=== PATIENT | male | born 1980 | race Caucasian/White ===

== ENCOUNTER → 2019-06-27 | Outpatient (CLI) | payer BC ==
[2019-06-27 12:25] LABS: Basophils % (A) 0 %; Eosinophils # (A) 0.4 k/uL (0-0.7); Eosinophils % (A) 5 %; HCT 44.2 % (39.0-53.0); HGB 15.3 gm/dL (13.0-17.5); Lymphocytes % (A) 24 %; MCH 30.2 pg (25.0-35.0); MCHC 34.7 g/dL (31.0-37.0); Mean Platelet Volume 7.4; Monocytes # (A) 0.5 k/uL (0-1.0); Monocytes % (A) 6 %; Neutrophils # (A) 5.4 k/uL (1.3-7.7); Neutrophils % (A) 63 %; Platelet Count 274 k/uL (150-450); RBC 5.08 m/uL (4.30-5.90); RDW 11.8 % (11.5-15.5); WBC 8.5 k/uL (3.8-10.6)
[2019-06-27 16:55] LABS: African American GFR (CKD) 125.1 (60.0-200.0); Albumin 4.4 g/dL (3.80-4.90); Albumin/Globulin Ratio 1.83 (1.60-3.17); Anion Gap 8.4 mmol/L (4.00-12.00); BUN/Creat Ratio 13.33 Ratio (12.00-20.00); Calcium 9.4 mg/dL (8.7-10.3); Carbon Dioxide 26.6 mmol/L (21.6-31.8); Globulin 2.4 g/dL (1.6-3.3); Potassium 4.2 mmol/L (3.5-5.5); Total Bilirubin 0.4 mg/dL (0.3-1.2); Total Protein 6.8 g/dL (6.2-8.2)
[2019-06-27 18:03] LABS: Hepatitis A Antibody IgM Non-Reactive (Non-Reactive); Hepatitis B Core IgM Non-Reactive (Non-Reactive); Hepatitis B Surface Antigen Non-Reactive (Non-Reactive); Hepatitis C IgG Antibody Non-Reactive (Non-Reactive)
== END | disposition home or self-care (01) ==
LOC: LABWHC1 11:42
DX: L40.0 Psoriasis vulgaris (principal)
CPT/HCPCS: 36415; 80053; 80074; 85025; 86480

== ENCOUNTER 2022-07-06 08:43 | Emergency (ER) | payer BC ==
[2022-07-06 09:01] VITALS: RESP 18; TEMP 98.3
--- NOTE | 2022-07-06 09:39 | ED ---
General Adult HPI - General Chief complaint: Chest Pain Stated complaint: chest pain Time Seen by Provider: 07/06/22 09:02 Source: patient Mode of arrival: ambulatory Limitations: no limitations - History of Present Illness Initial comments: Dictation was produced using [employer] dictation software. please excuse any grammatical, word or spelling errors. Chief Complaint: Patient is a 41-year-old male presents to the ER for chest pain History of Present Illness: 41-year-old male with no significant past medical history presents to the ER for chest pain. Patient states that it's left lower anterior. Nonradiating. Not associated with nausea vomiting. Patient does have family history. His maternal side had heart attack in her 50s. Patient has any tobacco abuse. Not associated with diaphoresis. Symptoms have been ongoing for the last 2-3 days. States that sometimes his pain become sharp. The ROS documented in this emergency department record has been reviewed and confirmed by me. Those systems with pertinent positive or negative responses have been documented in the HPI. All other systems are other negative and/or noncontributory. PHYSICAL EXAM: General Impression: Alert and oriented x3, not in acute distress HEENT: Normocephalic atraumatic, extra-ocular movements intact, pupils equal and reactive to light bilaterally, mucous membranes moist. Cardiovascular: Heart regular rate and rhythm Chest: Able to complete full sentences, no retractions, no tachypnea Abdomen: abdomen soft, non-tender, non-distended, no organomegaly Musculoskeletal: Pulses present and equal in all extremities, no peripheral edema Motor: no focal deficits noted Neurological: CN II-XII grossly intact, no focal motor or sensory deficits noted Skin: Intact with no visualized rashes Psych: Normal affect and mood ED course: 41-year-old male presents emergency department for atypical chest pain with typical features. Vital signs upon arrival are within acceptable limits. EKG is unremarkable for any signs of ischemia or infarction. He does have some risk factors. Nursing notes and chart review was performed EKG interpreted by me: Ventricular rate 60, sinus rhythm,. 150, QRS 92, QTC 418. No NV prolongation, no QTC prolongation, no ST or T-wave changes noted. . Overall, this EKG is unremarkable Laboratory evaluation obtained. CBC, coag panel, metabolic panel is unremarkable. Troponin is negative. Chest x-ray is nonacute. Patient was observed in the emergency department for 2 hours and 30 minutes. Reevaluated at bedside 11:15 AM. Disposition options were discussed with patient. Recommended observation admission. Patient refuses and would prefer to be discharged to follow up with outpatient cardiology. He is given strict return precautions. Patient given dose of 324 mg of aspirin. Patient understands the risk of being discharged. Was pt. sent in by a medical professional or institution (, [place], [facility], urgent care, hospital, or jail...) When possible be specific @ -No Did you speak to anyone other than the patient for history (EMS, parent, family, police, friend...)? What history was obtained from this source @ -No Did you review nursing and triage notes (agree or disagree)? Why? @ -I reviewed and agree with nursing and triage notes Were old charts reviewed (outside hosp., previous admission, EMS record, old EKG, old radiological studies, urgent care reports/EKG's, jail records)? Report findings @ -No old charts were reviewed Differential Diagnosis (chest pain, altered mental status, abdominal pain women, abdominal pain men, vaginal bleeding, weakness, fever, dyspnea, syncope, headache, dizziness, GI bleed, back pain, seizure, CVA, palpatations, mental health)? @ -Differential Chest Pain: Stable Angina, Unstable Angina, STEMI, NSTEMI Aortic Dissection, Pneumothorax, Musculoskeletal, Esophageal Spasm GERD, Cholecystitis, Pancreatitis, Zoster, this is not meant to be an all-inclusive list. EKG interpreted by me (3pts min.). @ -As above X-rays interpreted by me (1pt min.). @ -Unremarkable CT interpreted by me (1pt min.). @ -None done U/S interpreted by me (1pt. min.). @ -None done What testing was considered but not performed or refused? (CT, X-rays, U/S, la bs)? Why? @ -None What meds were considered but not given or refused? Why? @ -None Did you discuss the management of the patient with other professionals (professionals i.e. , [place], [facility] [facility], lab, RT, psych nurse, social worker psychiatric, weight loss sales consultant, teacher, information officer, medical case manager)? Give summary @ -No Was smoking cessation discussed for >3mins.? @ -No Was critical care preformed (if so, how long)? @ -No Were there social determinants of health that impacted care today? How? (Homelessness, low income, unemployed, alcoholism, drug addiction, transportation, low edu. Level, literacy, decrease access to med. care, group home, rehab)? @ -No Was there de-escalation of care discussed even if they declined (Discuss DNR or withdrawal of care, Hospice)? DNR status @ -No What co-morbidities impacted this encounter? (DM, HTN, Smoking, COPD, CAD, Cancer, CVA, ARF, Chemo, Hep., AIDS, mental health diagnosis, sleep apnea, morbid obesity)? @ -None Was patient admitted / discharged? Hospital course, mention meds given and route, prescriptions, significant lab abnormalities, going to OR and other pertinent info. @ -Discharged Undiagnosed new problem with uncertain prognosis? @ -No Drug Therapy requiring intensive monitoring for toxicity (Heparin, Nitro, Insulin, Cardizem)? @ -No Were any procedures done? @ -No Diagnosis/symptom? @ -Atypical chest pain with typical features Acute, or Chronic, or Acute on Chronic? @ -default Uncomplicated (without systemic symptoms) or Complicated (systemic symptoms)? @ -default Side effects of treatment? @ -No Exacerbation, Progression, or Severe Exacerbation? @ -No Poses a threat to life or bodily function? How? (Chest pain, USA, NC, pneumonia, PE, COPD, DKA, ARF, appy, cholecystitis, CVA, Diverticulitis, Homicidal, Suicidal, threat to staff... and all critical care pts) @ -Yes - Related Data Home Medications Medication Instructions Recorded Confirmed No Known Home Medications 07/06/22 07/06/22 Allergies Allergy/AdvReac Type Severity Reaction Status Date / Time No Known Allergies Allergy Verified 07/06/22 10:22 Review of Systems ROS Statement: Those systems with pertinent positive or pertinent negative responses have been documented in the HPI. ROS Other: All systems not noted in ROS Statement are negative. Past Medical History Past Medical History: No Reported History History of Any Multi-Drug Resistant Organisms: None Reported Past Surgical History: Cholecystectomy, Hernia Repair Additional Past Surgical History / Comment(s): gastric sleeve Smoking Status: Never smoker Past Alcohol Use History: None Reported Past Drug Use History: None Reported General Exam Limitations: no limitations Course Vital Signs 07/06/22 07/06/22 07/06/22 08:57 09:22 09:23 Temperature 98.3 F Pulse Rate 62 65 Pulse Rate [ 64 Rotary Drier Feeder ] Respiratory 18 18 Rate Blood Pressure 148/97 141/93 O2 Sat by Pulse 99 99 Oximetry Medical Decision Making - Lab Data Result diagrams: 07/06/22 09:54 07/06/22 09:54 Lab Results 07/06/22 07/06/22 07/06/22 Range/Units 09:54 09:54 09:54 WBC 7.6 (3.8-10.6) k/uL RBC 4.99 (4.30-5.90) m/uL Hgb 15.4 (13.0-17.5) gm/dL Hct 42.9 (39.0-53.0) % MCV 86.0 (80.0-100.0) fL MCH 30.9 (25.0-35.0) pg MCHC 35.9 (31.0-37.0) g/dL RDW 11.3 L (11.5-15.5) % Plt Count 249 (150-450) k/uL MPV 7.9 Neutrophils % 67 % Lymphocytes % 20 % Monocytes % 6 % Eosinophils % 6 % Basophils % 1 % Neutrophils # 5.1 (1.3-7.7) k/uL Lymphocytes # 1.5 (1.0-4.8) k/uL Monocytes # 0.4 (0-1.0) k/uL Eosinophils # 0.4 (0-0.7) k/uL Basophils # 0.1 (0-0.2) k/uL PT 10.1 (9.0-12.0) sec INR 0.9 (<1.2) APTT 24.8 (22.0-30.0) sec Sodium 139 (137-145) mmol/L Potassium 4.2 (3.5-5.1) mmol/L Chloride 107 (98-107) mmol/L Carbon Dioxide 25 (22-30) mmol/L Anion Gap 7 mmol/L BUN 11 (9-20) mg/dL Creatinine 0.78 (0.66-1.25) mg/dL Est GFR (CKD-EPI)AfAm >90 (>60 ml/min/1.73 sqM) Est GFR (CKD-EPI)NonAf >90 (>60 ml/min/1.73 sqM) Glucose 91 (74-99) mg/dL Calcium 9.0 (8.4-10.2) mg/dL Magnesium 1.8 (1.6-2.3) mg/dL Total Bilirubin 0.4 (0.2-1.3) mg/dL AST 23 (17-59) U/L ALT 24 (4-49) U/L Alkaline Phosphatase 88 (38-126) U/L Troponin I (0.000-0.034) ng/mL Total Protein 7.2 (6.3-8.2) g/dL Albumin 4.0 (3.5-5.0) g/dL 07/06/22 Range/Units 09:54 WBC (3.8-10.6) k/uL RBC (4.30-5.90) m/uL Hgb (13.0-17.5) gm/dL Hct (39.0-53.0) % MCV (80.0-100.0) fL MCH (25.0-35.0) pg MCHC (31.0-37.0) g/dL RDW (11.5-15.5) % Plt Count (150-450) k/uL MPV Neutrophils % % Lymphocytes % % Monocytes % % Eosinophils % % Basophils % % Neutrophils # (1.3-7.7) k/uL Lymphocytes # (1.0-4.8) k/uL Monocytes # (0-1.0) k/uL Eosinophils # (0-0.7) k/uL Basophils # (0-0.2) k/uL PT (9.0-12.0) sec INR (<1.2) APTT (22.0-30.0) sec Sodium (137-145) mmol/L Potassium (3.5-5.1) mmol/L Chloride (98-107) mmol/L Carbon Dioxide (22-30) mmol/L Anion Gap mmol/L BUN (9-20) mg/dL Creatinine (0.66-1.25) mg/dL Est GFR (CKD-EPI)AfAm (>60 ml/min/1.73 sqM) Est GFR (CKD-EPI)NonAf (>60 ml/min/1.73 sqM) Glucose (74-99) mg/dL Calcium (8.4-10.2) mg/dL Magnesium (1.6-2.3) mg/dL Total Bilirubin (0.2-1.3) mg/dL AST (17-59) U/L ALT (4-49) U/L Alkaline Phosphatase (38-126) U/L Troponin I <0.012 (0.000-0.034) ng/mL Total Protein (6.3-8.2) g/dL Albumin (3.5-5.0) g/dL Disposition Clinical Impression: Chest pain Disposition: HOME SELF-CARE Condition: Fair Instructions (If sedation given, give patient instructions): Chest Pain (ED) Is patient prescribed a controlled substance at d/c from ED?: No Referrals: Antione Salguero DO [Primary Care Provider] - 1-2 days Wes Valderrama DO [STAFF PHYSICIAN] - 1-2 days Time of Disposition: 11:21
[2022-07-06 10:03] LABS: Basophils # (A) 0.1 k/uL (0-0.2); Basophils % (A) 1 %; Eosinophils # (A) 0.4 k/uL (0-0.7); Eosinophils % (A) 6 %; HCT 42.9 % (39.0-53.0); HGB 15.4 gm/dL (13.0-17.5); Lymphocytes # (A) 1.5 k/uL (1.0-4.8); Lymphocytes % (A) 20 %; MCH 30.9 pg (25.0-35.0); MCHC 35.9 g/dL (31.0-37.0); Mean Platelet Volume 7.9; Monocytes # (A) 0.4 k/uL (0-1.0); Monocytes % (A) 6 %; Neutrophils # (A) 5.1 k/uL (1.3-7.7); Neutrophils % (A) 67 %; Platelet Count 249 k/uL (150-450); RBC 4.99 m/uL (4.30-5.90); RDW 11.3 % (11.5-15.5); WBC 7.6 k/uL (3.8-10.6)
[2022-07-06 10:12] LABS: INR 0.9 (<1.2); Partial Thromboplastin Time 24.8 sec (22.0-30.0); Prothrombin Time 10.1 sec (9.0-12.0)
[2022-07-06 10:13] LABS: ALT 24 U/L (4-49); AST 23 U/L (17-59); African American GFR (CKD) >90 (>60 ml/min/1.73 sqM); Alkaline Phosphatase 88 U/L (38-126); Anion Gap 7 mmol/L; Blood Urea Nitrogen 11 mg/dL (9-20); Carbon Dioxide 25 mmol/L (22-30); Chloride 107 mmol/L (98-107); Glucose 91 mg/dL (74-99); Magnesium 1.8 mg/dL (1.6-2.3); Non-African American GFR(CKD) >90 (>60 ml/min/1.73 sqM); Potassium 4.2 mmol/L (3.5-5.1); Sodium 139 mmol/L (137-145); Total Bilirubin 0.4 mg/dL (0.2-1.3); Total Protein 7.2 g/dL (6.3-8.2)
--- NOTE | 2022-07-06 10:41 | XR ---
EXAMINATION TYPE: XR chest 2V DATE OF EXAM: 07/06/2022 10:27 AM COMPARISON: None TECHNIQUE: XR chest 2V Frontal and lateral views of the chest. CLINICAL INDICATION:Male, 41 years old with history of Chest Pain; FINDINGS: Lungs/Pleura: There is no evidence of pleural effusion, focal consolidation, or pneumothorax. Pulmonary vascularity: Unremarkable. Heart/mediastinum: Cardiomediastinal silhouette is unremarkable. Musculoskeletal: No acute osseous pathology. IMPRESSION: No acute cardiopulmonary disease/process.
[2022-07-06] MEDS ORDERED: ASPIRIN 81 MG PO STA (11:11)
[2022-07-06 11:38] VITALS: BP 146/97; PULSE 65
== END 2022-07-06 11:46 | disposition home or self-care (01) ==
LOC: EC 08:43
DX: R07.89 Other chest pain (principal)
CPT/HCPCS: 36415; 71046; 80053; 83735; 84484; 85025; 85610; 85730; 93005; 99285

== ENCOUNTER 2022-07-08 11:06 | Observation (INO) | payer BC ==
[2022-07-08] MEDS ORDERED: NITROGLYCERIN SL TABS 0.4 MG TAB SUBLINGUAL STA (11:23)
[2022-07-08] MEDS ORDERED: ASPIRIN 81 MG PO STA (11:23)
[2022-07-08] MEDS ORDERED: ACETAMINOPHEN TAB 500 MG TAB PO STA (11:24)
[2022-07-08 11:39] LABS: Basophils # (A) 0.1 k/uL (0-0.2); Basophils % (A) 1 %; Eosinophils # (A) 0.5 k/uL (0-0.7); Eosinophils % (A) 7 %; HCT 47.9 % (39.0-53.0); HGB 16.8 gm/dL (13.0-17.5); Lymphocytes % (A) 25 %; MCH 30.2 pg (25.0-35.0); MCV 86.2 fL (80.0-100.0); Mean Platelet Volume 7.6; Monocytes # (A) 0.4 k/uL (0-1.0); Monocytes % (A) 5 %; Neutrophils # (A) 4.7 k/uL (1.3-7.7); Neutrophils % (A) 60 %; Platelet Count 262 k/uL (150-450); RBC 5.55 m/uL (4.30-5.90); RDW 11.8 % (11.5-15.5); WBC 7.9 k/uL (3.8-10.6)
--- NOTE | 2022-07-08 11:50 | XR ---
EXAMINATION TYPE: XR chest 2V DATE OF EXAM: 07/08/2022 COMPARISON: 07/16/2022 INDICATION: Chest pain radiating into upper extremities TECHNIQUE: Frontal and lateral views of the chest are obtained. FINDINGS: The heart size is normal. The pulmonary vasculature is normal. The lungs are clear. IMPRESSION: 1. No acute pulmonary process.
[2022-07-08 11:52] LABS: ALT 29 U/L (4-49); AST 31 U/L (17-59); African American GFR (CKD) >90 (>60 ml/min/1.73 sqM); Albumin 4.6 g/dL (3.5-5.0); Alkaline Phosphatase 86 U/L (38-126); Anion Gap 8 mmol/L; Blood Urea Nitrogen 14 mg/dL (9-20); Calcium 9.4 mg/dL (8.4-10.2); Carbon Dioxide 25 mmol/L (22-30); Chloride 106 mmol/L (98-107); Glucose 109 mg/dL (74-99); Lipase 95 U/L (23-300); Magnesium 1.9 mg/dL (1.6-2.3); Non-African American GFR(CKD) >90 (>60 ml/min/1.73 sqM); Sodium 139 mmol/L (137-145); Total Bilirubin 0.6 mg/dL (0.2-1.3); Total Protein 8.2 g/dL (6.3-8.2)
[2022-07-08 12:19] LABS: Potassium 4.7 mmol/L (3.5-5.1); Prothrombin Time 10.3 sec (9.0-12.0)
--- NOTE | 2022-07-08 12:29 | CT ---
EXAMINATION TYPE: CT brain wo con DATE OF EXAM: 07/08/2022 COMPARISON: None INDICATION: headache DLP: 1178.4 mGycm, Automated exposure control for dose reduction was used. CONTRAST: None CT of the brain is performed utilizing 3 mm thick sections through the posterior fossa and 3 mm thick sections through the remaining calvarium. Study is performed within 24 hours of arrival to the hosp ital. No abnormal hyperdensity is present to suggest an acute intracranial hemorrhage. No mass lesion is evident. No acute infarcts are evident. Ventricles and sulci are appropriate for the patient age. There is some mild thickening within the right maxillary sinus. Postsurgical changes are within the m axillary sinuses. There is an air-fluid level within the right sphenoid sinus. Mucosal thickening is present within the ethmoid regions and into the frontal sinuses. Correlate for pansinusitis. IMPRESSIONS: 1. No acute intracranial process radiographically apparent. Follow-up MRI can be performed as clini honorio indicated. 2. Clinical consideration for acute pansinusitis.
[2022-07-08] MEDS ORDERED: HEPARIN SODIUM 1,000 UN/ML (10ML VL) IV ONE (12:53)
[2022-07-08] MEDS ORDERED: HEPARIN SOD,PORK IN 0.45% NACL 25,000 UNIT in 0.45% NACL 1 250ML.BAG IV SCH (13:00)
--- NOTE | 2022-07-08 14:08 | ED ---
Chest Pain HPI - General Chief Complaint: Chest Pain Stated Complaint: revisit - chest pain Time Seen by Provider: 07/08/22 11:13 Source: patient, family, RN notes reviewed, old records reviewed Mode of arrival: wheelchair - History of Present Illness Initial Comments: 41-year-old male here to the emergency Department with complaints of retrosternal chest pain today with radiation to his left arm he was seen 2 days ago in the emergency department for the same type of pain was worse today and now radiating. It's about 9/10 severity. No nausea no vomiting he states he was walking in a local store when it occurred and seems to get worse with exertion. He does state that he felt flushed the pain was dull he started sweating with it started. Also of note he did start amlodipine yesterday 10 mg after seeing his doctor after the initial encounter 2 days ago. MD Complaint: chest pain - Related Data Home Medications Medication Instructions Recorded Confirmed amLODIPine [Norvasc] 10 mg PO DAILY 07/08/22 07/08/22 Allergies Allergy/AdvReac Type Severity Reaction Status Date / Time No Known Allergies Allergy Verified 07/08/22 13:04 Review of Systems ROS Statement: Those systems with pertinent positive or pertinent negative responses have been documented in the HPI. ROS Other: All systems not noted in ROS Statement are negative. EKG Findings - EKG Results: EKG: interpreted by ERMD (Initial EKG interpreted by me shows a sinus rhythm a 71 TX interval 155 QRS duration 90 QT since QTC 368/[address]-T wave changes) Past Medical History Past Medical History: Hypertension History of Any Multi-Drug Resistant Organisms: None Reported Past Surgical History: Cholecystectomy, Hernia Repair Additional Past Surgical History / Comment(s): gastric sleeve Past Psychological History: Anxiety Smoking Status: Never smoker Past Alcohol Use History: None Reported Past Drug Use History: None Reported General Exam - General Exam Comments Initial Comments: This is a well-developed well-nourished awake alert oriented 4 male General appearance: alert, anxious Head exam: Present: atraumatic, normocephalic, normal inspection Eye exam: Present: normal appearance, PERRL, EOMI. Absent: scleral icterus, conjunctival injection, periorbital swelling ENT exam: Present: normal exam, mucous membranes moist Neck exam: Present: normal inspection, full ROM, other. Absent: tenderness, meningismus, lymphadenopathy Respiratory exam: Present: normal lung sounds bilaterally. Absent: respiratory distress, wheezes, rales, rhonchi, stridor Cardiovascular Exam: Present: regular rate, normal rhythm, normal heart sounds. Absent: systolic murmur, diastolic murmur, rubs, gallop, clicks GI/Abdominal exam: Present: soft, normal bowel sounds. Absent: distended, tenderness, guarding, rebound, rigid Extremities exam: Present: normal inspection, full ROM, normal capillary refill. Absent: tenderness, pedal edema, joint swelling, calf tenderness Back exam: Present: normal inspection Neurological exam: Present: alert, oriented X3, CN II-XII intact Psychiatric exam: Present: normal affect, normal mood Skin exam: Present: warm, dry, intact, normal color. Absent: rash Course Vital Signs 07/08/22 07/08/22 07/08/22 11:09 11:30 12:00 Temperature 98.6 F Pulse Rate 76 67 65 Pulse Rate [ Bilateral Information Assurance ] Respiratory 16 19 18 Rate Blood Pressure 165/100 140/96 137/84 O2 Sat by Pulse 99 99 98 Oximetry 07/08/22 07/08/22 07/08/22 12:30 13:00 13:30 Temperature Pulse Rate 58 L 61 59 L Pulse Rate [ 62 Bilateral Information Assurance ] Respiratory 15 16 10 L Rate Blood Pressure 126/76 125/78 121/74 O2 Sat by Pulse 98 98 98 Oximetry - Reevaluation(s) Reevaluation #1: 07/08/22 14:09 Patient did get relief with nitroglycerin. EKG showed a sinus rhythm a 69 TX interval 152 QRS duration 94 QT since QTC 379/398 nonspecific T-wave configuration Chest Pain MDM - MDM I did interpret the chest x-ray negative for acute process patient does demonstrate clinical evidence of unstable angina he get relief of pain with nitroglycerin. I did discuss case with Dr. quinn who did come to see the patient he will be admitted with cardiology consultation Was pt. sent in by a medical professional or institution (, [place], [facility], urgent care, hospital, or senior living...) When possible be specific @ -[No] Did you speak to anyone other than the patient for history (EMS, parent, family, police, friend...)? What history was obtained from this source @ -[No] Did you review nursing and triage notes (agree or disagree)? Why? @ Yes I agree-[I reviewed and agree with nursing and triage notes] Were old charts reviewed (outside hosp., previous admission, EMS record, old EKG, old radiological studies, urgent care reports/EKG's, senior living records)? Report findings @ Yes-[No old charts were reviewed] Differential Diagnosis (chest pain, altered mental status, abdominal pain women, abdominal pain men, vaginal bleeding, weakness, fever, dyspnea, syncope, headache, dizziness, GI bleed, back pain, seizure, CVA, palpatations, mental health)? @ Chest pain secondary to chest wall pain and pulmonary etiology ACLS-[not applicable] EKG interpreted by me (3pts min.). @ EKG interpreted by me-[As above] X-rays interpreted by me (1pt min.). @ Yes as above] CT interpreted by me (1pt min.). @ -[None done] U/S interpreted by me (1pt. min.). @ -[None done] What testing was considered but not performed or refused? (CT, X-rays, U/S, labs)? Why? @ -[None] What meds were considered but not given or refused? Why? @ -[None] Did you discuss the management of the patient with other professionals (professionals i.e. , [place], [employer], lab, RT, psych nurse, hospital social worker, habilitation worker, teacher, chief supply chain officer, medical case worker)? Give summary @ sheet -[No] Was smoking cessation discussed for >3mins.? @ -[No] Was critical care preformed (if so, how long)? @ Yes 39 minutes-[] Were there social determinants of health that impacted care today? How? (Homelessness, low income, unemployed, alcoholism, drug addiction, transportation, low edu. Level, literacy, decrease access to med. care, snf, rehab)? @ -[No] Was there de-escalation of care discussed even if they declined (Discuss DNR or withdrawal of care, Hospice)? DNR status @ -[No] What co-morbidities impacted this encounter? (DM, HTN, Smoking, COPD, CAD, Canc er, CVA, ARF, Chemo, Hep., AIDS, mental health diagnosis, sleep apnea, morbid obesity)? @ -[None] Was patient admitted / discharged? Hospital course, mention meds given and route, prescriptions, significant lab abnormalities, going to OR and other pertinent info. @ -[hospital course] Undiagnosed new problem with uncertain prognosis? @ -[No] Drug Therapy requiring intensive monitoring for toxicity (Heparin, Nitro, Insulin, Cardizem)? @ -[No] Were any procedures done? @ -[No] Diagnosis/symptom? @ Chest pain, unstable angina-[default] Acute, or Chronic, or Acute on Chronic? @ Acute -[default] Uncomplicated (without systemic symptoms) or Complicated (systemic symptoms)? @ -[default] Side effects of treatment? @ -[No] Exacerbation, Progression, or Severe Exacerbation? @ -[No] Poses a threat to life or bodily function? How? (Chest pain, USA, NC, pneumonia, PE, COPD, DKA, ARF, appy, cholecystitis, CVA, Diverticulitis, Homicidal, Suicidal, threat to staff... and all critical care pts) @ Potential that evaluated and treated-[No] Disposition Clinical Impression: Chest pain, Unstable angina pectoris Disposition: ADMITTED IP TO THIS HOSP Condition: Fair Referrals: Antione Salguero DO [Primary Care Provider] - 1-2 days Decision Date: 07/08/22 Decision Time: 14:18
[2022-07-08] MEDS ORDERED: NITROGLYCERIN SL TABS 0.4 MG TAB SUBLINGUAL PRN (14:19)
--- NOTE | 2022-07-08 14:19 | ED ---
Medical Decision Making - Lab Data Result diagrams: 07/08/22 11:22 07/08/22 11:22 Lab Results 07/08/22 07/08/22 07/08/22 Range/Units 11:22 11:22 11:22 WBC 7.9 (3.8-10.6) k/uL RBC 5.55 (4.30-5.90) m/uL Hgb 16.8 (13.0-17.5) gm/dL Hct 47.9 (39.0-53.0) % MCV 86.2 (80.0-100.0) fL MCH 30.2 (25.0-35.0) pg MCHC 35.0 (31.0-37.0) g/dL RDW 11.8 (11.5-15.5) % Plt Count 262 (150-450) k/uL MPV 7.6 Neutrophils % 60 % Lymphocytes % 25 % Monocytes % 5 % Eosinophils % 7 % Basophils % 1 % Neutrophils # 4.7 (1.3-7.7) k/uL Lymphocytes # 2.0 (1.0-4.8) k/uL Monocytes # 0.4 (0-1.0) k/uL Eosinophils # 0.5 (0-0.7) k/uL Basophils # 0.1 (0-0.2) k/uL PT 10.3 (9.0-12.0) sec INR 1.0 (<1.2) APTT 25.0 (22.0-30.0) sec D-Dimer 0.42 (<0.60) mg/L FEU Sodium 139 (137-145) mmol/L Potassium 4.7 (3.5-5.1) mmol/L Chloride 106 (98-107) mmol/L Carbon Dioxide 25 (22-30) mmol/L Anion Gap 8 mmol/L BUN 14 (9-20) mg/dL Creatinine 0.77 (0.66-1.25) mg/dL Est GFR (CKD-EPI)AfAm >90 (>60 ml/min/1.73 sqM) Est GFR (CKD-EPI)NonAf >90 (>60 ml/min/1.73 sqM) Glucose 109 H (74-99) mg/dL Calcium 9.4 (8.4-10.2) mg/dL Magnesium 1.9 (1.6-2.3) mg/dL Total Bilirubin 0.6 (0.2-1.3) mg/dL AST 31 (17-59) U/L ALT 29 (4-49) U/L Alkaline Phosphatase 86 (38-126) U/L Troponin I (0.000-0.034) ng/mL NT-Pro-B Natriuret Pep pg/mL Total Protein 8.2 (6.3-8.2) g/dL Albumin 4.6 (3.5-5.0) g/dL Lipase 95 (23-300) U/L 07/08/22 07/08/22 Range/Units 11:22 11:22 WBC (3.8-10.6) k/uL RBC (4.30-5.90) m/uL Hgb (13.0-17.5) gm/dL Hct (39.0-53.0) % MCV (80.0-100.0) fL MCH (25.0-35.0) pg MCHC (31.0-37.0) g/dL RDW (11.5-15.5) % Plt Count (150-450) k/uL MPV Neutrophils % % Lymphocytes % % Monocytes % % Eosinophils % % Basophils % % Neutrophils # (1.3-7.7) k/uL Lymphocytes # (1.0-4.8) k/uL Monocytes # (0-1.0) k/uL Eosinophils # (0-0.7) k/uL Basophils # (0-0.2) k/uL PT (9.0-12.0) sec INR (<1.2) APTT (22.0-30.0) sec D-Dimer (<0.60) mg/L FEU Sodium (137-145) mmol/L Potassium (3.5-5.1) mmol/L Chloride (98-107) mmol/L Carbon Dioxide (22-30) mmol/L Anion Gap mmol/L BUN (9-20) mg/dL Creatinine (0.66-1.25) mg/dL Est GFR (CKD-EPI)AfAm (>60 ml/min/1.73 sqM) Est GFR (CKD-EPI)NonAf (>60 ml/min/1.73 sqM) Glucose (74-99) mg/dL Calcium (8.4-10.2) mg/dL Magnesium (1.6-2.3) mg/dL Total Bilirubin (0.2-1.3) mg/dL AST (17-59) U/L ALT (4-49) U/L Alkaline Phosphatase (38-126) U/L Troponin I <0.012 (0.000-0.034) ng/mL NT-Pro-B Natriuret Pep 19 pg/mL Total Protein (6.3-8.2) g/dL Albumin (3.5-5.0) g/dL Lipase (23-300) U/L Critical Care Time Critical Care Time: Yes Total Critical Care Time: 39 Disposition Clinical Impression: Chest pain, Unstable angina pectoris Disposition: ADMITTED IP TO THIS HOSP Condition: Fair Referrals: Antione Salguero DO [Primary Care Provider] - 1-2 days
[2022-07-08] MEDS ORDERED: ALPRAZolam 0.5 MG TAB PO PRN (18:10)
--- NOTE | 2022-07-08 18:13 | P.HPIM ---
History of Present Illness This is a pleasant 41 years old male with past medical history of hypertension. His PCP is Dr. Montalvo Presents states he presents with chest pain since Wednesday, Wednesday came to emergency room but he was sent home as he states his chest pain resolved at that time. His chest pain was on and off, yesterday he felt better about this morning he had some more chest pain, about 9/10 in severity radiating little bit to the left arm associated with little dyspnea and little headache but no weakness numbness. No dizziness or palpitation. No coughing. His chest pain feels Other already No GI or urinary symptoms. He denies smoking alcohol or illicit drugs Vitas looks stable unremarkable including CBC, BMP, liver enzymes. Troponin 2 are negative less than 0.012. ProBNP is 19 only Chest x-ray no acute process. CT of the brain done because patient had some headache and performed a heparinizing the patient showing no acute intracranial process bothers acute pansinusitis. EKG showed normal sinus rhythm at 71, no significant ST-T changes On admission patient is started on aspirin, he is on amlodipine 10 mg at home. Also started on heparin drip. Review of Systems Review of systems CONSTITUTIONAL: No fever, no malaise, no fatigue. HEENT: No recent visual problems or hearing problems. Denied any sore throat. CARDIOVASCULAR: No orthopnea, PND, no palpitations, no syncope. PULMONARY: No shortness of breath, no cough, no hemoptysis. GASTROINTESTINAL: No diarrhea, no nausea, no vomiting, no abdominal pain. Normoactive bowel sounds. NEUROLOGICAL: No headaches, no weakness, no numbness. HEMATOLOGICAL: Denies any bleeding or petechiae. GENITOURINARY: Denies any burning micturition, frequency, or urgency. MUSCULOSKELETAL/RHEUMATOLOGICAL: Denies any joint pain, swelling, or any muscle pain. ENDOCRINE: Denies any polyuria or polydipsia. Past Medical History Past Medical History: Hypertension History of Any Multi-Drug Resistant Organisms: None Reported Past Surgical History: Cholecystectomy, Hernia Repair Additional Past Surgical History / Comment(s): gastric sleeve Past Psychological History: Anxiety Smoking Status: Never smoker Past Alcohol Use History: None Reported Past Drug Use History: None Reported Medications and Allergies Home Medications Medication Instructions Recorded Confirmed Type amLODIPine [Norvasc] 10 mg PO DAILY 07/08/22 07/08/22 History Allergies Allergy/AdvReac Type Severity Reaction Status Date / Time No Known Allergies Allergy Verified 07/08/22 13:04 Physical Exam Vitals: Vital Signs Temp Pulse Pulse Resp BP BP Pulse Ox 07/08/22 15:57 98.2 F 64 16 138/78 99 07/08/22 14:30 68 16 132/78 98 07/08/22 14:00 71 20 128/75 99 07/08/22 13:30 59 L 20 121/74 98 07/08/22 13:00 61 62 16 125/78 98 07/08/22 12:30 58 L 15 126/76 98 07/08/22 12:00 65 18 137/84 98 07/08/22 11:30 67 19 140/96 99 07/08/22 11:09 98.6 F 76 16 165/100 99 Intake and Output 07/08/22 07/08/22 07/08/22 06:59 14:59 22:59 Other: Weight 136.985 kg GENERAL: The patient is alert and oriented x3, not in any acute distress. Well developed, well nourished. HEENT: Pupils are round and equally reacting to light. EOMI. No scleral icterus. No conjunctival pallor. Normocephalic, atraumatic. No pharyngeal erythema. No thyromegaly. CARDIOVASCULAR: S1 and S2 present. No murmurs, rubs, or gallops. PULMONARY: Chest is clear to auscultation, no wheezing or crackles. ABDOMEN: Soft, nontender, nondistended, normoactive bowel sounds. No palpable organomegaly. MUSCULOSKELETAL: No joint swelling or deformity. EXTREMITIES: No cyanosis, clubbing, or pedal edema. NEUROLOGICAL: Gross neurological examination did not reveal any focal deficits. SKIN: No rashes. no petechiae. Results CBC & Chem 7: 07/08/22 11:22 07/08/22 11:22 Labs: Abnormal Lab Results - Last 24 Hours (Table) 07/08/22 Range/Units 11:22 Glucose 109 H (74-99) mg/dL Assessment and Plan Assessment: Chest pain suspicious for unstable angina Hypertension Obesity with BMI of 41 Plan: Continue with heparin drip and aspirin Add metoprolol, small dose. Patient already on Norvasc. Check echocardiogram Cardiology consult Labs and medication were reviewed.. Continue same treatment. Continue with symptomatic treatment. Resume home medication. Monitor lytes and vitals. DVT and GI prophylaxis. Further recommendations as per clinical course of the patient DVT prophylaxis: heparin GI Prophylaxis: Pepcid Prognosis is guarded
[2022-07-08] MEDS: ACETAMINOPHEN TAB 325 MG TAB PO PRN (18:50)
[2022-07-08] MEDS: NITROGLYCERIN OINT 1 INCH/GM PACKET TOPICAL SCH (20:48)
[2022-07-08] MEDS: METOPROLOL TARTRATE 12.5 MG TAB PO SCH (21:21)
[2022-07-08] MEDS: FAMOTIDINE 20 MG/2 ML VIAL IV SCH (21:21)
[2022-07-08] MEDS: HEPARIN SODIUM 1,000 UN/ML (10ML VL) IV PRN (21:28)
[2022-07-09] MEDS: NITROGLYCERIN OINT 1 INCH/GM PACKET TOPICAL SCH ×3 (01:07→12:04)
[2022-07-09] MEDS: ACETAMINOPHEN TAB 325 MG TAB PO PRN (02:02)
[2022-07-09 04:29] LABS: Partial Thromboplastin Time 39.2 sec (22.0-30.0); Prothrombin Time 10.4 sec (9.0-12.0)
[2022-07-09] MEDS: HEPARIN SODIUM 1,000 UN/ML (10ML VL) IV PRN (04:35)
[2022-07-09 07:59] VITALS: RESP 18
[2022-07-09] MEDS ORDERED: SODIUM CHLORIDE 0.9% 1,000 ML IV SCH (08:30)
[2022-07-09] MEDS ORDERED: amLODIPine 10 MG TAB PO SCH (09:00)
[2022-07-09] MEDS ORDERED: ASPIRIN 325 MG TAB PO SCH (09:00)
[2022-07-09 09:01] LABS: Basophils # (A) 0.04 X 10*3/uL (0.00-0.10); Basophils % (A) 0.5 %; Eosinophils # (A) 0.45 X 10*3/uL (0.04-0.35); Eosinophils % (A) 5.3 %; HGB 14.6 g/dL (13.0-17.0); Immature Grans, Automated 0.2 %; Lymphocytes # (A) 2.85 X 10*3/uL (0.90-5.00); Lymphocytes % (A) 33.8 %; MCH 29.5 pg (27.0-32.0); MCHC 33.2 g/dL (32.0-37.0); MCV 88.9 fL (80.0-97.0); Mean Platelet Volume 10.3 fL (9.5-12.2); Monocytes # (A) 0.76 X 10*3/uL (0.20-1.00); NRBC Per 100 WBC 0 /100 WBCS (0.0-0.0); Neutrophils # (A) 4.31 X 10*3/uL (1.80-7.70); Neutrophils % (A) 51.2 %; Platelet Count 252 X 10*3/uL (140-440); RBC 4.95 X 10*6/uL (4.40-5.60); RDW 11.4 % (11.5-14.5); WBC 8.43 X 10*3/uL (4.50-10.00)
[2022-07-09] MEDS: FAMOTIDINE 20 MG/2 ML VIAL IV SCH (09:10)
--- NOTE | 2022-07-09 09:15 | P.CRDCN ---
History of Present Illness Consult date: 07/09/22 Consult reason: chest pain History of present illness: History of present illness: This is a 41-year-old male with past history of hypertension. Patient gives history of having chest pain initially on the first episode he was sitting at rest and he came into the emergency center on July 06 for evaluation. Troponin was negative and all lab work was unremarkable. EKG was a sinus bradycardia 60 bpm. Patient was offered admission as observation status but he refused. He followed up with an shower room attendant in [place] and was started on amlod ipine. Patient states he had another episode of chest pain while he was walking at [employer]. Pain radiated to his left shoulder and he was diaphoretic. Chest pain was described as a heaviness. Family history mom had myocardial infarction in her early 50s. Patient works as a heavy equipment rental associate. He does relate that he had gastric sleeve done 5 years ago with weight loss of 180 pounds. EKG sinus rhythm with no acute ST changes CBC unremarkable. Troponin negative 4. Potassium 4.7, BUN 14 creatinine 0.77. Liver function tests within normal limits. Chest x-ray revealed no acute findings CAT scan of the brain no acute intracranial process Home cardiac medications: Amlodipine 10 mg daily Review Of Systems: At the time of my evaluation: Constitutional: No fever, no chills. No weakness, fatigue or lethargy. EENT: No headache. No dizziness. Lungs: No shortness of breath, cough, no sputum production. No wheezing. Cardiovascular: No chest pain, no lower extremity edema. No palpitations. No paroxysmal nocturnal dyspnea. No orthopnea. No lightheadedness or dizziness. No syncopal episodes. Abdominal: No abdominal pain. No nausea, vomiting. No diarrhea. No constipation. No bloody or tarry stools. Genitourinary: No dysuria.. No urinary retention. Musculoskeletal: No myalgias. No muscle weakness, no frequent falls. No back pain. No neck pain. Integumentary: No wounds. No rash. No unusual bruising. Neurologic: No aphasia. No facial droop. No change in mentation. No head injury. No headache. Psychiatric: No depression. No anxiety. Endocrine: No abnormal blood sugars. Physical examination: Gen: This is a 41-year-old male. He is resting in recliner and appears to be comfortable and in no acute distress VS: reviewed HEENT: Head is atraumatic, normocephalic. Pupils equal, round. Sclerae is anicteric. NECK: Supple. No JVD. No lymphadenopathy. No thyromegaly. LUNGS: Clear to auscultation. No wheezes or rhonchi. No intercostal retracti ons. HEART: Regular rate and rhythm. No murmur. ABDOMEN: Soft. Bowel sounds are present. No masses. No tenderness. EXTREMITIES: No pedal edema. No calf tenderness. NEUROLOGICAL: Patient is awake, alert and oriented x3. Cranial nerves 2 through 12 are grossly intact. Assessment: Chest pain atypical, acute coronary syndrome ruled out Hypertension Plan: Discontinue heparin drip Hold beta gianni Exercise stress test today Obtain 2-D echocardiogram and Doppler study to assess cardiac structure and function If testing is normal, patient is cleared for discharge home from cardiology. Thank you kindly for this consultation. Nurse practitioner note has been reviewed, I agree with documented findings and plan of care. Patient was seen and examined. Past Medical History Past Medical History: Hypertension History of Any Multi-Drug Resistant Organisms: None Reported Past Surgical History: Cholecystectomy, Hernia Repair Additional Past Surgical History / Comment(s): gastric sleeve Past Anesthesia/Blood Transfusion Reactions: No Reported Reaction Past Psychological History: Anxiety Smoking Status: Never smoker Past Alcohol Use History: None Reported Past Drug Use History: None Reported Medications and Allergies Home Medications Medication Instructions Recorded Confirmed Type amLODIPine [Norvasc] 10 mg PO DAILY 07/08/22 07/08/22 History Allergies Allergy/AdvReac Type Severity Reaction Status Date / Time No Known Allergies Allergy Verified 07/08/22 13:04 Physical Exam Vitals: Vital Signs Temp Pulse Pulse Resp BP BP Pulse Ox 07/09/22 07:31 96 07/09/22 07:00 98 F 57 L 18 136/81 96 07/09/22 01:59 97.9 F 55 L 19 146/96 96 07/08/22 19:05 98.1 F 66 18 129/89 97 07/08/22 15:57 98.2 F 64 16 138/78 99 07/08/22 14:30 68 16 132/78 98 07/08/22 14:00 71 20 128/75 99 07/08/22 13:30 59 L 20 121/74 98 07/08/22 13:00 61 62 16 125/78 98 07/08/22 12:30 58 L 15 126/76 98 07/08/22 12:00 65 18 137/84 98 07/08/22 11:30 67 19 140/96 99 07/08/22 11:09 98.6 F 76 16 165/100 99 Intake and Output 07/08/22 07/09/22 07/09/22 22:59 06:59 14:59 Intake Total 81.833 100.174 Balance 81.833 100.174 Intake: Intake, IV Titration 81.833 100.174 Amount Heparin Sod,Pork in 0.45% 81.833 100.174 NaCl 25,000 unit In 0.45 % NaCl 1 250ml.bag @ 7.3 UNITS/KG/HR 10 mls/hr IV .Q24H [facility] Rx#:[id number] Other: # Voids 2 1 Weight 136.985 kg Results 07/09/22 03:56 07/08/22 11:22 Cardiac Enzymes 07/08/22 07/08/22 07/08/22 Range/Units 11:22 11:22 16:01 AST 31 (17-59) U/L Troponin I <0.012 <0.012 (0.000-0.034) ng/mL 07/08/22 07/09/22 Range/Units 19:45 03:56 AST (17-59) U/L Troponin I <0.012 <0.012 (0.000-0.034) ng/mL Coagulation 07/08/22 07/08/22 07/09/22 Range/Units 11:22 19:45 03:56 PT 10.3 10.4 (9.0-12.0) sec APTT 25.0 29.1 39.2 H (22.0-30.0) sec CBC 07/08/22 Range/Units 11: WBC 7.9 (3.8-10.6) k/uL RBC 5.55 (4.30-5.90) m/uL Hgb 16.8 (13.0-17.5) gm/dL Hct 47.9 (39.0-53.0) % Plt Count 262 (150-450) k/uL Comprehensive Metabolic Panel 07/08/22 Range/Units 11:22 Sodium 139 (137-145) mmol/L Potassium 4.7 (3.5-5.1) mmol/L Chloride 106 (98-107) mmol/L Carbon Dioxide 25 (22-30) mmol/L BUN 14 (9-20) mg/dL Creatinine 0.77 (0.66-1.25) mg/dL Glucose 109 H (74-99) mg/dL Calcium 9.4 (8.4-10.2) mg/dL AST 31 (17-59) U/L ALT 29 (4-49) U/L Alkaline Phosphatase 86 (38-126) U/L Total Protein 8.2 (6.3-8.2) g/dL Albumin 4.6 (3.5-5.0) g/dL Current Medications Generic Name Dose Route Start Last Admin Trade Name Freq PRN Reason Stop Dose Admin Acetaminophen 650 mg 07/08/22 18:37 07/09/22 02:02 Acetaminophen Tab 325 Mg Tab PO 650 mg Q4HR PRN Administration Fever and/ or Pain Alprazolam 0.5 mg 07/08/22 18:10 Alprazolam 0.5 Mg Tab PO BID PRN Anxiety Amlodipine Besylate 10 mg 07/09/22 09:00 Amlodipine 10 Mg Tab PO DAILY [facility] Aspirin 325 mg 07/09/22 09:00 Aspirin 325 Mg Tab PO DAILY [facility] Famotidine 20 mg 07/08/22 21:00 07/08/22 21:21 Famotidine 20 Mg/2 Ml Vial IV 20 mg Q12HR STEPHANIE Administration Heparin Sodium (Porcine) 0 unit 07/08/22 12:53 07/09/22 04:35 Heparin Sodium 1,000 Un/Ml (10ml Vl) IV 3,424 unit PER PROTOCOL PRN Administration Low PTT Protocol Heparin Sodium/Sodium Chloride 250 mls @ 10 mls/hr 07/08/22 13:00 07/09/22 04:34 25,000 unit/ Sodium Chloride IV 12.3 units/kg/hr .Q24H STEPHANIE 16.849 mls/hr Titration Protocol 7.3 UNITS/KG/HR Metoprolol Tartrate 12.5 mg 07/08/22 21:00 07/08/22 21:21 Metoprolol Tartrate 12.5 Mg Tab PO 12.5 mg BID STEPHANIE Administration Nitroglycerin 0.4 mg 07/08/22 14:19 Nitroglycerin Sl Tabs 0.4 Mg Tab SUBLINGUAL Q5M PRN Chest Pain Nitroglycerin 1 inch 07/08/22 18:00 07/09/22 06:03 Nitroglycerin Oint 1 Inch/Gm Packet TOPICAL Not Given Q6HR [facility] Intake and Output 07/08/22 07/09/22 07/09/22 22:59 06:59 14:59 Intake Total 81.833 100.174 Balance 81.833 100.174 Intake: Intake, IV Titration 81.833 100.174 Amount Heparin Sod,Pork in 0.45% 81.833 100.174 NaCl 25,000 unit In 0.45 % NaCl 1 250ml.bag @ 7.3 UNITS/KG/HR 10 mls/hr IV .Q24H [facility] Rx#:[id number] Other: # Voids 2 1 Weight 136.985 kg 07/08/22 11:22 07/08/22 11:22
[2022-07-09 09:27] LABS: LDL Cholesterol,Calculated 105.6 mg/dL (0.0-131.0); VLDL Calculation 15.14 mg/dL (5.00-40.00)
--- NOTE | 2022-07-09 10:50 | CA ---
Exercise Stress Test Report Name: Raymundo Lemon Exam Date: 07/09/2022 09:29 Exam Location: [place] Stress Ht (in): 72 Wt (lb): 302 BSA: 2.54 Ordering Phys: Mirtha Hdz Referring Phys: JAVI,, Technologist: PAM,, Age: 41 Gender: M : 1980 Procedure CPT: Indications: CP ICD-10 Codes: Patient History: Chest Pain and shortness of breath Medications: Meds past 24 hrs: Pretest Chest Pain: STRESS TEST [place] Protocol Exercise Duration (min:sec): 10:[address] Depressions (mm): Angina Score: Lewis Score: Resting HR (bpm): 70 Peak HR (bpm): 163 Resting BP (mmHg): 159 / 93 Peak BP (mmHg): 192 / 87 MPHR: 179 Target HR: 152 % MPHR: 91 METS: 11.7 Total Dose: Peak Dose: Atropine: Double Product: 68582 BP Response: Stress Termination: Reached target heart rate Stress Symptoms: No chest pain or symptoms Stress Summary: ECG ANALYSIS Resting ECG: Stress ECG: CONCLUSIONS Baseline EKG revealed normal sinus rhythm without significant ST-T changes. Patient walked on a standard Donavan protocol for 10 minutes 2 seconds and achieved a axman heart rate of 163 bpm. He did not have any angina. There was no arrhythmia. EKG did not reveal any ST segment changes to indicate ischemia. By EKG criteria this is a negative stress test with excellent excise capacity Dr. Jatin Mckeon MD (Electronically Signed) Final Date: 09 July 2022 10:49
[2022-07-09] MEDS: METOPROLOL TARTRATE 12.5 MG TAB PO SCH (12:16)
[2022-07-09 13:40] VITALS: BP 126/78; PULSE 72; TEMP 97
[2022-07-09] MEDS ORDERED: AMOXIC-POT CLAV 875-125MG 1 EACH TAB PO SCH (13:45)
--- NOTE | 2022-07-09 14:50 | P.CNNES ---
History of Present Illness Consult date: 07/09/22 Requesting physician: Roger Luis Reason for Consult: Episodes of headache History of Present Illness: Patient is a 41-year-old male with history of hypertension came to the hospital yesterday at 11:06 AM for evaluation of chest pain. He came to the ER on 07/06/2022 for chest pain. He was recommended stress test but he wanted to have it as an outpatient. Along with chest pain he was also having headaches . The symptoms have been getting worse. He saw a production support consultant the following day on Wednesday, who started him on amlodipine 10 mg daily. Yesterday he came because his chest pain was getting worse 8/10 but the headache was 10 on a scale of 1-10. He also noticed flushing, sweating slight dizziness(for a split second) and his vision got foggy. He felt like his head will explode. Therefore he came to the ER. Patient states for last 1-1/2 weeks, he has been having headaches. The headaches involves the frontal temporal region. He does have sinus surgery about 1-1/2 years ago. He has some ALLERGIES for which he uses [facility]. He is noticing that his blood pressure also has been running high lately. Vital signs on arrival blood pressure 165/100, pulse rate 76 temperature 98.6. Blood pressure now has normalized. Blood test shows normal CBC, PT/PTT, d- dimer, normal CMP, normal troponin. Patient's hemoglobin A1c 5.1, lipid panel with cholesterol 161, LDL 105, HDL [address] head revealed no acute intracranial process. Clinical consideration for acute pansinusitis. I personally reviewed CT head, agree with the findings. The sinusitis mainly involves the frontal sinuses and the anterior ethmoid sinuses, and slightly the maxillary and right sphenoid. Mastoids are clear. Chest x-ray showed no acute process. EKG with normal sinus rhythm. Patient's home medications include amlodipine 10 mg daily. Patient has history of hypertension since age 18. He has not been taking any blood pressure medication for last 5 years, but restarted on Wednesday. He denies any tobacco or alcohol use. Patient states that last night he has a very bad headache and after taking 2 Tylenol, took almost 2 hours to work. At present he has no headache. Patient has been seen by cardiology, and felt chest pain is atypical, acute coronary syndrome ruled out. Stress test pending. He denies any fever or chills. He says that he received nitroglycerin yesterday, which helped with the chest pain but did not help with the headache. Patient states that he has been having periodic headache for a long time. The headaches occurs about twice a week, lasts for a few hours. If he takes Tylenol or Motrin, he does knock it down or sometimes stops in 30-45 minutes. Otherwise may take a few hours to resolve. The headache that he gets is very intense, throbbing with constant pain. He does get noise sensitivity but no light sensitivity. Denies any nausea or vomiting with the headache. He takes Motrin as needed for headache. Review of Systems Constitutional: Denies chills, Denies fever Eyes: denies blurred vision (Patient had transient blurred vision but now resolved.), denies pain, denies photophobia, denies loss of peripheral vision, denies loss of vision Ears: deny: decreased hearing, ear discharge Ears, nose, mouth and throat: Reports headache, Reports nasal discharge, Reports sinus pain, Denies dysphagia, Denies epistaxis, Denies odynophagia, Denies sore throat Cardiovascular: Reports chest pain, Denies leg edema, Denies shortness of breath Respiratory: Denies cough Gastrointestinal: Denies abdominal pain, Denies diarrhea, Denies nausea, Denies vomiting Musculoskeletal: Denies myalgias Integumentary: Denies pruritus, Denies rash Neurological: Reports as per HPI Psychiatric: Denies anxiety, Denies depression Endocrine: Denies fatigue, Denies weight change Hematologic/Lymphatic: Denies easy bruising Allergic/Immunologic: Denies angioedema Past Medical History Past Medical History: Hypertension History of Any Multi-Drug Resistant Organisms: None Reported Past Surgical History: Cholecystectomy, Hernia Repair Additional Past Surgical History / Comment(s): gastric sleeve Past Anesthesia/Blood Transfusion Reactions: No Reported Reaction Past Psychological History: Anxiety Smoking Status: Never smoker Past Alcohol Use History: None Reported Past Drug Use History: None Reported Medications and Allergies Home Medications Medication Instructions Recorded Confirmed Type amLODIPine [Norvasc] 10 mg PO DAILY 07/08/22 07/08/22 History Amoxic-Pot Clav 875-125Mg 1 each PO Q12HR 7 Days #14 tab 07/09/22 Rx [Augmentin 875-125] Metoprolol Tartrate [Lopressor] 12.5 mg PO BID #60 tab 07/09/22 Rx Allergies Allergy/AdvReac Type Severity Reaction Status Date / Time No Known Allergies Allergy Verified 07/08/22 13:04 Physical Examination - Vital Signs Vital Signs: Vital Signs Temp Pulse Pulse Resp BP BP Pulse Ox 07/09/22 07:31 96 07/09/22 07:00 98 F 57 L 18 136/81 96 07/09/22 01:59 97.9 F 55 L 19 146/96 96 07/08/22 19:05 98.1 F 66 18 129/89 97 07/08/22 15:57 98.2 F 64 16 138/78 99 07/08/22 14:30 68 16 132/78 98 07/08/22 14:00 71 20 128/75 99 07/08/22 13:30 59 L 20 121/74 98 07/08/22 13:00 61 62 16 125/78 98 07/08/22 12:30 58 L 15 126/76 98 07/08/22 12:00 65 18 137/84 98 07/08/22 11:30 67 19 140/96 99 07/08/22 11:09 98.6 F 76 16 165/100 99 Intake and Output 07/08/22 07/09/22 07/09/22 22:59 06:59 14:59 Intake Total 81.833 100.174 Balance 81.833 100.174 Intake: Intake, IV Titration 81.833 100.174 Amount Heparin Sod,Pork in 0.45% 81.833 100.174 NaCl 25,000 unit In 0.45 % NaCl 1 250ml.bag @ 7.3 UNITS/KG/HR 10 mls/hr IV .Q24H [facility] Rx#:[id number] Other: # Voids 2 1 Weight 136.985 kg Patient is a middle aged male, in no acute distress. Patient is alert awake oriented to time place and person. Speech and language functions are normal. Patient can name and repeat very well. No aphasia or dysarthria. Attention, concentration and fund of knowledge is adequate. On cranial nerve examination, pupils are equal, round and reacting to light, visual camejo are full on confrontation, with no neglect on double simultaneous stimulation. Extraocular muscles are intact with no nystagmus. Face is symmetric, tongue protrudes to the midline. Palatal elevation and sensation normal, hearing and shoulder shrug normal, facial sensation normal. On muscle strength testing, there is no pronator drift and the strength is normal in arms and legs distally and proximally. Deep tendon reflexes are symmetric 1+ to 2+ and plantars downgoing bilaterally. Sensory to touch is equal with no neglect on double simultaneous stimulation. Cerebellar function showed no ataxia for [id number] testing. No dysdiadochokinesia. No ataxia for [id number] testing on either side. Tone and bulk of muscles normal. Gait deferred.. On general examination, there is no carotid bruit or murmur, S1-S2 audible. Chest is clear on consultation. Abdomen is soft nontender. No organomegaly, bowel sounds present. Peripheral pulses are present. No edema. Results - Laboratory Findings CBC and BMP: 07/09/22 03:56 07/08/22 11:22 Abnormal Lab Findings: Abnormal Labs 07/08/22 07/09/22 07/09/22 11:22 03:56 03:56 RDW 11.4 L Eosinophils # 0.45 H APTT 39.2 H Glucose 109 H Assessment and Plan Assessment: * Sinus headache. Patient probably has acute on chronic sinusitis. CT head showed near complete opacification of left frontal sinus and significant involvement of the right frontal, bilateral ethmoid sinuses. Slight air fluid level in the right sphenoid sinus as well. * Periodic headaches, which may be possible migraines. * Chest pain, acute coronary syndrome ruled out * Hypertension * History of sinus surgery 1-1/2 years ago. Plan: * Suggest course of antibiotic, perhaps Augmentin 1 tablet twice a day for 7-10 days. * Patient's headaches may also be related to uncontrolled blood pressure. Recommend control of blood pressure to normotensive level. * Patient recommended to keep a log of headaches, as he may have underlying barry jovan as well. At present his headaches and resolves well with Motrin or Tylenol, which he can continue to take as needed. If the headaches become frequent, or they do not respond to OTC medication, then he was recommended to follow up with neurologist as an outpatient. * Neurologically, no other workup indicated. Clear for discharge. Discussed with primary physician. Thank you for the consult.
[2022-07-09] MEDS ORDERED: FAMOTIDINE 20 MG TAB PO SCH (21:00)
--- NOTE | 2022-07-10 10:56 | CA ---
Transthoracic Echo Report Name: Raymundo Lemon Age: 41 Gender: M : 1980 Exam Date: 07/09/2022 14:33 Exam Location: [facility] Ht (in): 72 Wt (lb): 302 Ordering Physician: Jayden Matthew MD Attending/Referring Phys: Locomotive Engineer Tasneem Rose RDCS Procedure CPT: Indications: Chest Pain Cardiac Hx: Technical Quality: Fair Contrast 1: Total Dose (mL): Contrast 2: Total Dose (mL): MEASUREMENTS (Male / Female) Normal Values 2D ECHO LV Diastolic Diameter PLAX 4.2 cm 4.2 - 5.9 / 3.9 - 5.3 cm LV Systolic Diameter PLAX 2.1 cm IVS Diastolic Thickness 1.4 cm 0.6 - 1.0 / 0.6 - 0.9 cm LVPW Diastolic Thickness 1.4 cm 0.6 - 1.0 / 0.6 - 0.9 cm LV Relative Wall Thickness 0.7 RV Internal Dim ED PLAX 3.8 cm LA Volume 78.1 cm??? 18 - 58 / 22 - 52 cm??? M-MODE Aortic Root Diameter MM 3.4 cm LA Systolic Diameter MM 4.0 cm LA Ao Ratio MM 1.2 AV Cusp Separation MM 1.9 cm DOPPLER AV Peak Velocity 120.2 cm/s AV Peak Gradient 5.8 mmHg LVOT Peak Velocity 105.3 cm/s LVOT Peak Gradient 4.4 mmHg MV Area PHT 3.1 cm??? Mitral E Point Velocity 57.4 cm/s Mitral A Point Velocity 56.0 cm/s Mitral E to A Ratio 1.0 MV Deceleration Time 244.5 ms MV E' Velocity 8.0 cm/s Mitral E to MV E' Ratio 7.2 TR Peak Velocity 241.8 cm/s TR Peak Gradient 23.4 mmHg Right Ventricular Systolic Press 28.3 mmHg FINDINGS Left Ventricle Moderately increased septal wall thickness. Normal left ventricular systolic function with no obvious regional wall motion abnormalities. Left ventricular ejection fraction is estimated at 55-60%. Right Ventricle Mild right ventricular dilatation. Right ventricular systolic pressure within normal limits. Right Atrium Normal right atrial size. Left Atrium Moderately increased left atrial volume. Mildly increased left atrial area. Mitral Valve Structurally normal mitral valve. No mitral stenosis, regurgitation or prolapse. Aortic Valve Trileaflet aortic valve. No aortic valve stenosis or regurgitation. Tricuspid Valve Structurally normal tricuspid valve. Mild tricuspid regurgitation. Pulmonic Valve No pulmonic stenosis. Pericardium No pericardial effusion. Aorta Normal size aortic root and proximal ascending aorta. CONCLUSIONS Normal LV size and systolic function with [id number] concentric LVH. Enlarged left atrium. Mild mitral and tricuspid insufficiency. No pericardial effusion Previewed by: Dr. Jatin Mckeon MD (Electronically Signed) Final Date: 10 July 2022 10:55
== END 2022-07-09 15:56 | disposition home or self-care (01) ==
LOC: EC 11:06 → 6NMEDSUR 14:19
PROVIDERS: ADMIT Internal Medicine; ATTEND Internal Medicine
DX: J01.40 Acute pansinusitis, unspecified (principal); R07.89 Other chest pain; I10 Essential (primary) hypertension; Z90.49 Acquired absence of other specified parts of digestive tract; Z98.890 Other specified postprocedural states; Z98.84 Bariatric surgery status; F41.9 Anxiety disorder, unspecified; E66.9 Obesity, unspecified; Z68.41 Body mass index [BMI] 40.0-44.9, adult; Z82.49 Family history of ischemic heart disease and other diseases of the circulatory system; Z79.899 Other long term (current) drug therapy
CPT/HCPCS: 96365; 96366 ×2; 96375 ×2; 99291; 36415; 94760; 93005; 93017; 93306; 85379; 83880; 80061; 80053; 83690; 83735; 84484 ×2; 85025 ×2; 85610 ×2; 85730 ×2; 83036; 71046; 70450; G0378 ×2; J1644 ×3; 99285